=== PATIENT | male | born 1970 | race Caucasian/White ===

== ENCOUNTER 2019-09-05 17:15 | Emergency (ER) | payer OTHER ==
[~2019-09-05] VITALS: Ht 175.3 cm; Wt 82.6 kg
--- NOTE | 2019-09-05 17:28 | NUR ---
PT AMANDA FROM HOME. C/O 2 DAYS OF FLU LIKE SYMTOMS. RECENT SICK CONTACT W/ CO WORK[employer]. PT STATES FEVER TODAY. PLACED ON MONITOR. AWAITING MD NEAL.
--- NOTE | 2019-09-05 17:34 | NUR ---
POPEYE MCKINNEY AT BEDSIDE FOR EVAL.
[2019-09-05] MEDS ORDERED: KETOROLAC TROMETHAMINE 15 MG/ML VIAL ONE (17:41)
[2019-09-05] MEDS ORDERED: ACETAMINOPHEN 325 MG TABLET ONE (17:41)
[2019-09-05] MEDS ORDERED: ONDANSETRON HCL/PF 4 MG/2 ML VIAL ONE (17:50)
--- NOTE | 2019-09-05 17:53 | NUR ---
RADIOLOGY AT BEDSIDE FOR CHEST XRAY.
[2019-09-05] MEDS ORDERED: KETOROLAC TROMETHAMINE INJ 30 MG/ML VIAL IV ONE (18:00)
[2019-09-05] MEDS ORDERED: IV NS 0.9% 500 ML BAG IV ONE (18:00)
[2019-09-05] MEDS ORDERED: ONDANSETRON HCL/PF 4 MG/2 ML VIAL IVP ONE (18:00)
[2019-09-05] MEDS ORDERED: ACETAMINOPHEN 325 MG TABLET PO ONE (18:00)
--- NOTE | 2019-09-05 18:54 | NUR ---
Patient discharged to home in stable condition. Written and verbal after care instructions given. Patient verbalizes understanding of instruction.IV removed. Catheter intact and site benign. Pressure and 4x4 applied to site. No bleeding noted.
[2019-09-05 18:55] VITALS: BP 125/76
== END 2019-09-05 18:55 | disposition home or self-care (01) ==
LOC: ER 17:18
DX: J18.9 Pneumonia, unspecified organism (principal); Z88.8 Allergy status to other drugs, medicaments and biological substances
CPT/HCPCS: 71045; 87804 ×2; 96374; 96375; 99284; J1885; J2405; J7040